=== PATIENT | female | born 1980 | race Caucasian/White ===

== ENCOUNTER 2018-01-10 14:47 | Emergency (ER) | payer OTHER ==
[2018-01-10 15:23] VITALS: BP 115/74
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
== END 2018-01-10 16:13 | disposition home or self-care (01) ==
LOC: UCCORT 14:47
DX: J06.9 Acute upper respiratory infection, unspecified (principal); Z88.0 Allergy status to penicillin; Z87.891 Personal history of nicotine dependence
CPT/HCPCS: 87651; 99211; G0463